=== PATIENT | female | born 1940 | race Caucasian/White ===

== ENCOUNTER → 2017-01-24 | Outpatient (CLI) | payer OTHER, BC ==
[2017-01-24 13:21] LABS: BASO % 0.1 %; BASO ABS # 0.01 K/uL (0-0.2); COMPLETE YES; EOS % 0.4 %; HEMATOCRIT 48.8 % (37-47); IG% 0.1 %; LYMPH % 18.2 %; LYMPH ABS # 1.25 K/uL (1.2-3.4); MEAN CELL VOLUME 88.7 fL (80-100); MEAN CORPUSCULAR HEMOGLOBIN 30.2 pg (25-34); MEAN PLATELET VOLUME 10.8 fL (7.4-10.4); MONO % 6.9 %; NEUT % 74.3 %; PLATELET COUNT 226 K/uL (130-400); WHITE BLOOD COUNT 6.86 K/uL (4.8-10.8)
[2017-01-24 13:40] LABS: ALT/SGPT 18 U/L (12-78); BLOOD UREA NITROGEN 13 mg/dl (7-18); CALCIUM 9.4 mg/dl (8.5-10.1); CARBON DIOXIDE 29 mmol/L (21-32); CHLORIDE 101 mmol/L (98-107); GLUCOSE 105 mg/dl (70-99); SODIUM 138 mmol/L (136-145)
[2017-01-24 13:51] LABS: ALB/GLOB RATIO 1.1 (0.9-2); ALKALINE PHOSPHATASE 41 U/L (45-117); AST/SGOT 14 U/L (15-37)
[2017-01-24 15:45] LABS: LYME DISEASE AB IGG NEG (NEG); LYME DISEASE AB IGM NEG (NEG)
== END | disposition home or self-care (01) ==
LOC: C.LABPVFM 10:32
PROVIDERS: ATTEND Family Medicine
DX: R53.83 Other fatigue (principal)

== ENCOUNTER → 2017-02-02 | Outpatient (CLI) | payer OTHER, BC ==
--- NOTE | 2017-02-02 12:46 | DIAGNOSTIC IMAGING REPORT ---
ABDOMEN COMPLETE (US) CLINICAL HISTORY: 76 years-old Female presenting with R63.4 Weight loss. TECHNIQUE: Real-time grayscale and limited color Doppler ultrasound imaging of the abdomen was performed. COMPARISON: None. FINDINGS: Pancreas: Visualized portions of the pancreatic head and body normal. Chronic duct nondilated. Liver: Normal echogenicity and echotexture. The liver contains several well-defined anechoic lesions with posterior acoustic enhancement consistent with hepatic cysts or hamartomas. Main portal vein patent with normal directional flow. Biliary: No intrahepatic biliary ductal dilatation. Common bile duct measures up to 8 mm in diameter. Gallbladder: Cholelithiasis. No gallbladder wall thickening, para cholecystic fluid or inflammatory change. Spleen: Normal in echogenicity and size, measuring 9.9 cm in length. Kidneys: Normal in size and echogenicity. Right kidney measures 10.2 cm, and left kidney measures 10.3 cm. No hydronephrosis. 5 mm hyperechogenic focus posteriorly in the interpolar region of the right kidney without evidence of posterior shadowing, indeterminate. Vasculature: Visualized portions of the IVC normal. Atherosclerosis of the abdominal aorta, which is normal in caliber. Ascites: None. IMPRESSION: 1. Cholelithiasis. No cholelithiasis. 2. Mild extra hepatic biliary ductal dilatation. If there is clinical concern for choledocholithiasis, MRCP could be considered. 3. 5 mm indeterminate hyperechogenic focus in the interpolar region of the right kidney. The imaging appearance is not consistent with a renal calculus. This may represent an angiomyolipoma or prominent renal sinus fat among other etiologies. Electronically signed by: Kota Hussein M.D. 02/02/2017 12:45 PM Dictated Date/Time: 02/02/2017 12:41 PM
== END | disposition home or self-care (01) ==
LOC: C.ULTRBC 11:28
PROVIDERS: ATTEND Family Medicine
DX: R63.4 Abnormal weight loss (principal); N28.89 Other specified disorders of kidney and ureter

== ENCOUNTER → 2017-02-26 | Outpatient (CLI) | payer OTHER, BC ==
[2017-02-26 12:54] LABS: BASO % 0.3 %; BASO ABS # 0.02 K/uL (0-0.2); COMPLETE YES; HEMATOCRIT 45.8 % (37-47); IG% 0.2 %; LYMPH % 16.4 %; LYMPH ABS # 0.96 K/uL (1.2-3.4); MEAN CELL VOLUME 90.2 fL (80-100); MEAN CORPUSCULAR HEMOGLOBIN 30.1 pg (25-34); MEAN CORPUSCULAR HGB CONC 33.4 g/dl (32-36); MEAN PLATELET VOLUME 10.1 fL (7.4-10.4); MONO % 14.3 %; NEUT % 67.8 %; PLATELET COUNT 190 K/uL (130-400); RED BLOOD COUNT 5.08 M/uL (4.2-5.4); WHITE BLOOD COUNT 5.87 K/uL (4.8-10.8)
== END | disposition home or self-care (01) ==
LOC: C.LABBFT 10:43
PROVIDERS: ATTEND Family Medicine
DX: R63.4 Abnormal weight loss (principal); D75.1 Secondary polycythemia

== ENCOUNTER → 2017-05-11 | Outpatient (CLI) | payer OTHER, BC ==
--- NOTE | 2017-05-11 15:09 | MAMMOGRAPHY REPORT ---
BILATERAL DIGITAL SCREENING MAMMOGRAM TOMOSYNTHESIS WITH CAD: 05/11/2017 CLINICAL HISTORY: Routine screening. Patient has no complaints. TECHNIQUE: Breast tomosynthesis in addition to standard 2D mammography was performed. Current study was also evaluated with a Computer Aided Detection (CAD) system. COMPARISON: Comparison is made to exams dated: 04/04/2016 mammogram, 03/05/2015 mammogram, 02/21/2014 mammogram, 02/15/2013 mammogram, 02/18/2012 mammogram, and 02/13/2012 mammogram - [facility]. BREAST COMPOSITION: The tissue of both breasts is heterogeneously dense, which may obscure small mas ses. FINDINGS: A linear scar marker overlies the superior left breast and periareolar right breast. There are diffuse bilateral round, punctate and coarse calcifications. No suspicious mass, architectural d istortion, asymmetry or cluster of new, suspicious microcalcifications is seen. IMPRESSION: ACR BI-RADS CATEGORY 1: NEGATIVE There is no mammographic evidence of malignancy. A 1 year screening mammogram is recommended. The pa tient will receive written notification of the results. Approximately 10% of breast cancers are not detected with mammography. A negative mammographic report should not delay biopsy if a clinically suggestive mass is present. Elizabeth Peck M.D. ay/:05/11/2017 11:20:45 Sample Display Preparer: Bernice EDDY)([place]), [facility] letter sent: Normal 1/2 BI-RADS Code: ACR BI-RADS Category 1: Negative
== END | disposition home or self-care (01) ==
LOC: C.MAMM 09:49
PROVIDERS: ATTEND Family Medicine
DX: Z12.31 Encounter for screening mammogram for malignant neoplasm of breast (principal); M85.88 Other specified disorders of bone density and structure, other site; M85.852 Other specified disorders of bone density and structure, left thigh; M85.851 Other specified disorders of bone density and structure, right thigh

== ENCOUNTER → 2017-05-21 | Outpatient (CLI) | payer OTHER, BC | END | disposition home or self-care (01) | LOC: C.PATHSPEC 18:10 | PROVIDERS: ATTEND Surgery | DX: D48.5 Neoplasm of uncertain behavior of skin (principal); D23.9 Other benign neoplasm of skin, unspecified; L94.2 Calcinosis cutis ==

== ENCOUNTER → 2017-08-21 | Outpatient (CLI) | payer OTHER, BC ==
--- NOTE | 2017-08-21 11:27 | DIAGNOSTIC IMAGING REPORT ---
EXAMINATION: RENAL ULTRASOUND CLINICAL HISTORY: N28.9 Renal [id number] COMPARISON STUDY: 02-17 FINDINGS: The right kidney measures 9.7 cm. The left kidney measures 10.1 cm. There is no evidence of hydronephrosis. There is a stable 5 mm echogenic focus within the upper pole of the right kidney. The bladder was not well-distended. Neither ureteral jet was visualized. Incidental note is made of cholelithiasis IMPRESSION : 1. Cholelithiasis 2. Stable nonspecific 5 mm echogenic focus within the right kidney Electronically signed by: Alexis Berg M.D. 08/21/2017 11:26 AM Dictated Date/Time: 08/21/2017 11:25 AM
== END | disposition home or self-care (01) ==
LOC: C.ULTR 10:45
PROVIDERS: ATTEND Family Medicine
DX: N28.9 Disorder of kidney and ureter, unspecified (principal); K80.20 Calculus of gallbladder without cholecystitis without obstruction